=== PATIENT | male | born 1990 | race Caucasian/White ===

== ENCOUNTER 2021-08-30 08:00 | Outpatient (CLI) | payer OTHER ==
--- NOTE | 2021-08-30 15:20 | XRAY Report ---
PROCEDURE: Foot 3 View RT INDICATIONS: FOOT FX TECHNIQUE: 3 views of the foot were acquired. COMPARISON: 08/08/21. FINDINGS: Bones: Displaced fracture of the proximal fifth metatarsal. Fracture is unchanged in appearance kathy red to 08/08/2021. Soft tissues: No tibiotalar joint effusion. Achilles tendon appears normal. IMPRESSION: Stable fifth metatarsal fracture. Reviewed by: Marely Peña MD, PhD on 08/30/2021 3:18 PM PDT Approved by: Marely Peña MD, PhD on 08/30/2021 3:18 PM PDT Station ID: [id number]
== END 2021-08-30 23:59 | disposition home or self-care (01) ==
LOC: DI.WOS 08:00
PROVIDERS: ATTEND Physician Assistant
DX: S92.351D Displaced fracture of fifth metatarsal bone, right foot, subsequent encounter for fracture with routine healing (principal)

== ENCOUNTER 2021-12-06 08:00 | Outpatient (CLI) | payer OTHER ==
--- NOTE | 2021-12-06 17:32 | XRAY Report ---
PROCEDURE: Ankle 3 View LT INDICATIONS: STRAIN OF L ANKLE TECHNIQUE: 3 views of the ankle were acquired. COMPARISON: None FINDINGS: Bones: No fractures or dislocations. Ankle mortise is normally aligned. No suspicious bony lesions . Soft tissues: No tibiotalar joint effusion. Achilles tendon appears normal. IMPRESSION: Intact ankle mortise. No fracture or dislocation. No gross soft tissue abnormalities. Reviewed by: Sixto Velez MD on 12/06/2021 5:31 PM PDT Approved by: Sixto Velez MD on 12/06/2021 5:31 PM PDT Station ID: [id number]
== END 2021-12-06 23:59 | disposition home or self-care (01) ==
LOC: DI.N 08:00
PROVIDERS: ATTEND Physician Assistant
DX: M70.972 Unspecified soft tissue disorder related to use, overuse and pressure, left ankle and foot (principal)

== ENCOUNTER 2023-08-10 07:39 | Outpatient (CLI) | payer OTHER ==
[2023-08-10 12:48] LABS: ESTIMATED AVERAGE GLUCOSE 100 mg/dL (70-100); HEMOGLOBIN A1c% 5.1 % (4.27-6.07)
[2023-08-10 12:56] LABS: CALCIUM 9.6 mg/dL (8.5-10.3); CREATININE 1.3 mg/dL (0.6-1.3); POTASSIUM 4.4 mmol/L (3.5-4.5); URIC ACID 9.5 mg/dL (4.4-7.6)
[2023-08-10 13:01] LABS: THYROID STIMULATING HORMONE 2.42 uIU/mL (0.34-5.60)
== END 2023-08-10 07:40 | disposition home or self-care (01) ==
LOC: LAB.N 07:39
PROVIDERS: ATTEND Family Medicine
DX: E66.9 Obesity, unspecified (principal); Z82.69 Family history of other diseases of the musculoskeletal system and connective tissue
CPT/HCPCS: 36415; 80048; 83036; 84443; 84550